=== PATIENT | female | born 1990 | race Caucasian/White ===

== ENCOUNTER 2018-05-20 11:42 | Inpatient (IN) | payer BC ==
[2018-05-20] MEDS ORDERED: Misoprostol 200 MCG TAB PR PRN (22:37)
[2018-05-20] MEDS ORDERED: Lidocaine 1% (PF) 30 ML VIAL SC PRN (22:37)
[2018-05-20] MEDS ORDERED: Ondansetron HCl/PF 4 MG/2 ML Vial IVP PRN (22:37)
[2018-05-20] MEDS ORDERED: Acetaminophen 500 MG TAB PO PRN (22:37)
[2018-05-20] MEDS ORDERED: HYDROcodone/Acetaminophen 5/325 mg Tablet PO PRN ×2 (22:37)
[2018-05-20] MEDS ORDERED: Carboprost 250 MCG/ML AMP IM PRN (22:37)
[2018-05-20] MEDS ORDERED: Promethazine HCl 25 MG/ML VIAL IM PRN (22:37)
[2018-05-20] MEDS ORDERED: Ibuprofen 800 MG TAB PO PRN (22:37)
[2018-05-20] MEDS ORDERED: Docusate 100 MG CAP PO PRN (22:37)
[2018-05-20] MEDS ORDERED: Zolpidem Tartrate 5 MG TAB PO PRN (22:37)
[2018-05-20] MEDS ORDERED: Butorphanol Tartrate 1 MG/ML VIAL SLOW IVP PRN (22:37)
[2018-05-20] MEDS ORDERED: Diphenoxylate HCl/Atropine Tablet PO PRN ×2 (22:37)
[2018-05-20] MEDS ORDERED: NS w/ Oxytocin 10 units 500 ML IV SCH ×2 (22:45→23:00)
[2018-05-20 23:44] LABS: Hemoglobin 12.8 g/dL (12.0-16.0); Mean Corpuscular HGB CONC 35.2 g/dL (32.0-36.0); Mean Corpuscular Hemoglobin 33.1 pg (27.0-31.0); Mean Platelet Volume 8.6 fL (7.4-10.4); Platelet Count 228 thou/uL (130-400); RBC Distribution Width 13.3 % (11.5-14.5); Red Blood Cell (RBC) Count 3.86 mill/uL (4.20-5.40); White Blood Cell (WBC) Count 10.7 thou/uL (4.8-10.8)
[2018-05-21] MEDS: Misoprostol 100 MCG TAB VAG SCH ×2 (00:01→16:09)
[2018-05-21 00:23] LABS: HBSAg Index 0.18 S/CO (0-0.99); Hep B Surf Ag Non-Reactive S/CO (NonReactive); Syphilis Antibody Nonreactive (Nonreactive); Syphilis Antibody Index 0.04 S/CO (<1.00 Non-Reactive)
[2018-05-21] MEDS: Lactated Ringer's 1,000 ML IV SCH ×3 (06:00→16:10)
[2018-05-21] MEDS ORDERED: Bupivacaine 0.5% 20 ML, fentaNYL Citrate/PF 400 MCG in Sodium Chloride 0.9% 72 ML EPIDURAL SCH (11:00)
[2018-05-21] MEDS ORDERED: DISCONTINUE ALL PREVIOUS NARCOTICS FS SCH (11:00)
[2018-05-21] MEDS ORDERED: Naloxone HCl 0.4 mg/ml Vial IVP PRN ×2 (12:43)
[2018-05-21] MEDS ORDERED: Acetaminophen 325 MG TAB PO PRN (12:43)
[2018-05-21] MEDS ORDERED: ePHEDrine/0.9% NaCl/PF SYRINGE 50 mg/10 ml SLOW IVP PRN (12:43)
[2018-05-21] MEDS ORDERED: diphenhydrAMINE 50 MG/ML VIAL IVP PRN (12:43)
[2018-05-21] MEDS ORDERED: Lactated Ringer's 500 ML IV PRN (12:43)
[2018-05-21] MEDS ORDERED: Ondansetron HCl/PF 4 MG/2 ML Vial IVP PRN ×2 (12:43→16:05)
[2018-05-21] MEDS ORDERED: Eucerin (Mineral Oil/Petrolatum,White) 30 gm Jar TOP PRN (12:43)
[2018-05-21] MEDS ORDERED: Promethazine HCl 25 MG/ML VIAL IM PRN ×2 (12:43→16:05)
[2018-05-21] MEDS ORDERED: Communication Order-Pharmacy FS SCH (12:45)
[2018-05-21] MEDS ORDERED: fentaNYL Citrate/PF 400 MCG, Bupivacaine 0.5% 20 ML in Sodium Chloride 0.9% 72 ML EPIDURAL SCH (12:45)
[2018-05-21] MEDS: NS / Oxytocin 40 units/1000ml 1,000 ML IV PRN ×2 (13:24→14:14)
[2018-05-21] MEDS ORDERED: Varicella virus, LIVE 0.5 ML VIAL SC ONE (16:05)
[2018-05-21] MEDS ORDERED: Lanolin Ointment 7 GM TUBE TOP PRN (16:05)
[2018-05-21] MEDS ORDERED: Preparation H Ointment 28 GM TUBE PR PRN (16:05)
[2018-05-21] MEDS ORDERED: HYDROcodone/Acetaminophen 5/325 mg Tablet PO PRN ×2 (16:05)
[2018-05-21] MEDS ORDERED: NS / Oxytocin 40 units/1000ml 1,000 ML IV SCH (16:05)
[2018-05-21] MEDS ORDERED: Adacel (T-DAP) 0.5 ML VIAL IM ONE (16:05)
[2018-05-21] MEDS ORDERED: Benzocaine/Menthol 20-0.5% 60 ML CAN TOP PRN (16:05)
[2018-05-21] MEDS ORDERED: Misoprostol 200 MCG TAB VAG PRN (16:05)
[2018-05-21] MEDS ORDERED: Bisacodyl 10 MG SUPP PR PRN (16:05)
[2018-05-21] MEDS ORDERED: Measles/Mumps/Rubella 10 MCG/0.5 ML VIAL SC ONE (16:05)
[2018-05-21] MEDS ORDERED: Milk Of Magnesia 30 ML UDCUP PO PRN (16:05)
[2018-05-21] MEDS ORDERED: diphenhydrAMINE 25 MG CAP PO PRN (16:05)
[2018-05-21] MEDS ORDERED: Zolpidem Tartrate 5 MG TAB PO PRN (16:05)
[2018-05-21] MEDS: Ibuprofen 800 MG TAB PO SCH (17:04)
[2018-05-21] MEDS: Ferrous Sulfate 325 MG TAB PO SCH (17:06)
[2018-05-21] MEDS: Docusate Calcium (SURFAK) 240 MG CAP PO SCH (21:39)
[2018-05-22] MEDS: Ibuprofen 800 MG TAB PO SCH ×4 (00:08→22:03)
[2018-05-22 05:35] LABS: Hemoglobin 11.7 g/dL (12.0-16.0); Mean Corpuscular HGB CONC 34.8 g/dL (32.0-36.0); Mean Corpuscular Hemoglobin 33.4 pg (27.0-31.0); Mean Corpuscular Volume 96.2 fL (78.0-98.0); Mean Platelet Volume 8.4 fL (7.4-10.4); Platelet Count 189 thou/uL (130-400); RBC Distribution Width 13.4 % (11.5-14.5); White Blood Cell (WBC) Count 16.5 thou/uL (4.8-10.8)
[2018-05-22] MEDS: Ferrous Sulfate 325 MG TAB PO SCH ×2 (09:29→17:03)
[2018-05-22] MEDS: Docusate Calcium (SURFAK) 240 MG CAP PO SCH ×2 (09:37→22:03)
[2018-05-22] MEDS ORDERED: Bupivacaine HCl 0.5%/Epinephrine 1:200,000/PF 30 ml Vial ONE (11:17)
[2018-05-22] MEDS ORDERED: Lidocaine 2% MPF 10 ML AMP (For Epidural Use) ONE (11:17)
--- NOTE | 2018-05-22 18:45 | DN ---
DATE OF DELIVERY: 05/21/2018 PREOPERATIVE DIAGNOSIS: Intrauterine at 40 weeks and 4 days with gestational hypertension. POSTOPERATIVE DIAGNOSES: Intrauterine at 40 weeks and 4 days with gestational hypertension . PROCEDURE: Spontaneous vaginal delivery over second-degree midline laceration on the perineum. FINDINGS: Viable male infant weighing 10 pounds 8 ounces or 4753 grams, Apgars of 7 and 9. Quantita tive blood loss 740 mL. COMPLICATIONS: None. SURGEON: Dr. Elia Guthrie. The patient desired a nonintervention style delivery, thus we avoided earlier induction at her reques t. However, by 40-1/2 weeks, the patient agreed to medical induction of labor for gestational hypert ension. Estimated size was approximately 9 pounds based on a clinical ultrasound done previous ly. The patient was admitted to [facility] where she underwent Cytotec induct ion. She ruptured her membranes spontaneously with clear fluid. She was then allowed to push and di d so with the assistance of her butadiene converter utility operator that she brought with her. The patient tried various positions to get comfortable; however, she was having a difficult time pushing due to tremendous pressure and discomfort. After approximately 2 hours of relatively poor maternal pushing effort, the patient requ ested epidural anesthesia. Dr. Valenzuela performed epidural placement, which worked exceptionally well and the patient was able to regain her composure and was able to push much more effectively. She the n proceeded to deliver her baby in a vertex presentation with occiput anterior. She delivered the sh oulders without difficulty along with the rest of the baby's body. Once out, the baby's mouth and no se were bulb suctioned, cord clamped and cut and the baby was handed to waiting attendants. Cord blo od was collected. Fundal massage was performed. The placenta delivered intact. Bleeding did not se em increased. 2-0 chromic was used to repair a laceration of the posterior vaginal opening, which ap peared to be a second-degree midline laceration. No other injuries were noted. Uterus was firm. Bl eeding was within normal limits. The patient was then allowed to recover in the Labor and Delivery r oom and baby went to nursery.
[2018-05-23] MEDS: Ibuprofen 800 MG TAB PO SCH ×2 (05:08→14:04)
[2018-05-23 08:16] VITALS: BP 120/67; TEMP 98.6
[2018-05-23] MEDS: Ferrous Sulfate 325 MG TAB PO SCH (08:58)
[2018-05-23] MEDS: Docusate Calcium (SURFAK) 240 MG CAP PO SCH (08:58)
== END 2018-05-23 15:55 | disposition home or self-care (01) | DRG 775 ==
LOC: L&D 22:25 → 3SW 05-21 16:13
PROVIDERS: ADMIT Obstetrics & Gynecology; ATTEND Obstetrics & Gynecology
PROC: 10E0XZZ Delivery of Products of Conception, External Approach (ICD-10-PCS; principal; 2018-05-21)
PROC: 0KQM0ZZ Repair Perineum Muscle, Open Approach (ICD-10-PCS; 2018-05-21)
PROC: 3E0P7VZ Introduction of Hormone into Female Reproductive, Via Natural or Artificial Opening (ICD-10-PCS; 2018-05-21)
DX: O13.4 Gestational [pregnancy-induced] hypertension without significant proteinuria, complicating childbirth (principal); Z3A.40 40 weeks gestation of pregnancy; Z37.0 Single live birth; O70.1 Second degree perineal laceration during delivery; O48.0 Post-term pregnancy
CPT/HCPCS: 36415; 85027; 86780; 86850; 86900; 86901; 87340; J0595; J0670; J2001; J3010; J3490; J7050